=== PATIENT | female | born 1950 | race Caucasian/White ===

== ENCOUNTER 2021-02-23 13:35 | Outpatient (CLI) | payer MEDICARE | END 2021-02-23 13:36 | disposition home or self-care (01) | LOC: MADCT 13:35 | PROVIDERS: ATTEND Physician Assistant | DX: R10.31 Right lower quadrant pain (principal); K85.90 Acute pancreatitis without necrosis or infection, unspecified | CPT/HCPCS: 36415; 74177; 82565 ==

== ENCOUNTER 2023-10-25 15:20 | Outpatient (CLI) | payer MEDICARE, OTHER ==
[2023-10-25 15:32] LABS: #Basophils 0.1 thou/uL (0.0-0.2); #Eosinphils 0.2 thou/uL (0.0-0.7); #Lymphocytes 2.1 thou/uL (1.20-3.40); #Monocytes 0.5 thou/uL (0.11-0.59); #Neutrophils 3.9 thou/uL (1.40-6.50); %Basophils 0.8 % (0.0-1.0); %Eosinophils 2.4 % (0.0-10.0); %Lymphocytes 31.3 % (21.0-51.0); %Neutrophils 57.5 % (42.0-75.0); Hematocrit 37.1 % (36.0-47.0); Hemoglobin 11.6 g/dL (12.0-16.0); Mean Corpuscular HGB CONC 31.2 g/dL (32.0-36.0); Mean Corpuscular Hemoglobin 31.3 pg (27.0-31.0); Mean Platelet Volume 8.1 fL (7.4-10.4); Platelet Count 235 10x3/uL (130-400); RBC Distribution Width 13.4 % (11.5-14.5); Red Blood Cell (RBC) Count 3.71 mill/uL (4.20-5.40); White Blood Cell (WBC) Count 6.7 10x3/uL (4.8-10.8)
[2023-10-25 16:21] LABS: Anion Gap 16 mmol/L (10-20); BUN (Urea Nitrogen) 22 mg/dL (9.8-20.1); Calc. Creatinine Clearance 0 mL/min (70-130); Calcium 9.8 mg/dL (7.8-10.44); Carbon Dioxide 27 mmol/L (23-31); Chloride 103 mmol/L (98-107); Estimated GFR 71; Glucose 110 mg/dL (83-110); Potassium 4.6 mmol/L (3.5-5.1); Sodium 141 mmol/L (136-145)
[2023-10-26 23:29] LABS: Free T4 (Free Thyroxine) 0.42 ng/dL (0.70-1.48)
== END 2023-10-25 15:21 | disposition home or self-care (01) ==
LOC: MADLABBHPM 15:20
PROVIDERS: ATTEND Internal Medicine
DX: E03.9 Hypothyroidism, unspecified (principal); E11.9 Type 2 diabetes mellitus without complications; D64.9 Anemia, unspecified
CPT/HCPCS: 80048; 84439; 84443; 85025